=== PATIENT | female | born 1970 | race Caucasian/White ===

== ENCOUNTER → 2017-11-17 10:30 | Outpatient (CLI) | payer OTHER ==
[~2017-11-17 10:30] MED LIST: CIPRO500 MG PO; CLONAZEPAM0.5 MG; COLACE100 MG PO; FLAGYL500MG PO; KETO10TA2 PO; LAMICTAL25 M1 PO; NEURONTIN300 MG PO; NEURONTIN800 MG; PERCOCET 5-3251 EACH PO; RELAFEN PO; SEROQUEL25 MG
== END | disposition home or self-care (01) ==
LOC: ADM 10:30 → EKG 10:30 → EDSTATUS 11-25 10:30 → CIR.AMB 11-25 10:30
DX: K61.2 Anorectal abscess (principal); K62.89 Other specified diseases of anus and rectum; K60.3 Anal fistula; Z01.810 Encounter for preprocedural cardiovascular examination

== ENCOUNTER → 2018-05-12 | Day surgery (SDC) | payer OTHER ==
[~2018-05-12] MED LIST changes: +ALBUTEROL SULFA; +BREO ELLIPTA 21 EACH; +SINGULAIR4 M1; +ULTRACET PO
== END | disposition home or self-care (01) ==
LOC: ADM 05-04 09:15 → CIR.AMB 08:44
DX: K60.3 Anal fistula (principal)

== ENCOUNTER 2018-05-20 15:18 | Emergency (ER) | payer OTHER ==
[~2018-05-20] VITALS: Ht 160 cm; Wt 97.5 kg
== END 2018-05-20 22:21 | disposition home or self-care (01) ==
LOC: ER 15:18
DX: K59.09 Other constipation (principal)

== ENCOUNTER 2019-03-03 17:01 | Inpatient (IN) | payer OTHER ==
[~2019-03-03] VITALS: Ht 160 cm; Wt 97.5 kg
[2019-03-03] MEDS ORDERED: CLONAZEPAM0.5 MG (17:14)
--- NOTE | 2019-03-03 17:15 | NUR ---
PTE INDICA QUE LE SALIO UN INFLAMACION EN EL LADO KIRK DE [place], REFIERE QUE TUVO JESSIE OPERACION EN NOV2017, DE UN ABCESSO, FISTULA Y REMOCION DE SETON. PTE INIDCA EN ENERO EL DR.NICOLAS AUGUSTIN REEVALUO OPERACION Y DIAGNOSITCO QUE NO FUE EXITOSA. PTE INDICA QUE TIENE CHELSEA EN PARA FIJAR NUEVA OPERACION. PTE ALERTA CONSCIENTE Y ORIENTADA X3
--- NOTE | 2019-03-03 17:47 | NUR ---
LOVELACE EVALUA PTE. SE ORIENTA A PTE SOBRE TX MEDICO. PTE REFIERE COMPRENDER. SE REALIZAN MUESTRAS DE LABORATORIO BAJO MEDIDAS ASEPTICAS. SE NOTIFICA CT. PROCEDIMIENTOS LLEVADOS A CABO POR .
--- NOTE | 2019-03-04 00:30 | NUR ---
SE RECIBE PACIENTE ALERTA Y ORIENTADA X3 EN CAMA CON BARANDAS ELEVADAS Y CABEZERA A 30 GRADOS, AREA DE VENOPUNCION PATENTE Y COREY DE EDEMA EN SALINE LOCK. SE ADMINISTRA MEDICAMENTO PARA EL DOLOR INTRAMUSCULAR EN GLUTEO DERECHO PARTE SUPERIOR EXTERNO. PACIENTE TOLERA INTERVECION DEL RN.
--- NOTE | 2019-03-04 07:06 | NUR ---
SE RECIBE PT ALERTA Y ORIENTADA EN TIEMPO LUGAR Y PERSONA. AL MOMENTO EN CAMA CON BARANDAS SUPERIORES ELEVADAS, TIMBRE ACCESIBLE Y SALINE LOCK EN BRAZO RT PATENTE COREY DE EDEMA Y ERITEMA. SE MANTIENE EN ESPERA DE SER EVALUADA POR DRA CAM MELCHOR.
[2019-03-05] MEDS ORDERED: NABUMETONE750 MG PO (08:56)
[2019-03-08] MEDS ORDERED: INTESTINEX680 M1 PO (14:22)
[2019-03-08] MEDS ORDERED: FLAGYL500MG PO (14:22)
[2019-03-08] MEDS ORDERED: CIPRO500 MG PO (14:22)
[2019-03-08] MEDS ORDERED: ULTRACET PO (14:23)
== END 2019-03-08 14:44 | disposition home or self-care (01) | DRG 348 ==
LOC: ER 17:01 → SURG 03-04 11:11
PROVIDERS: ADMIT Surgery
PROC: 3E0F7GC Introduction of Other Therapeutic Substance into Respiratory Tract, Via Natural or Artificial Opening (ICD-10-PCS; 2019-03-04)
PROC: 3E0T3BZ Introduction of Anesthetic Agent into Peripheral Nerves and Plexi, Percutaneous Approach (ICD-10-PCS; 2019-03-06)
PROC: 0D9Q00Z Drainage of Anus with Drainage Device, Open Approach (ICD-10-PCS; principal; 2019-03-06 15:00)
DX: K61.2 Anorectal abscess (principal); N82.3 Fistula of vagina to large intestine; J45.42 Moderate persistent asthma with status asthmaticus; B96.29 Other Escherichia coli [E. coli] as the cause of diseases classified elsewhere; K59.09 Other constipation; I51.7 Cardiomegaly; M79.7 Fibromyalgia; Z88.0 Allergy status to penicillin

== ENCOUNTER 2022-06-10 22:38 | Emergency (ER) | payer OTHER ==
[~2022-06-10] VITALS: Ht 160 cm; Wt 106.1 kg
[~2022-06-10 22:38] MED LIST changes: +INTESTINEX680 M1 PO; +NABUMETONE750 MG PO
[2022-06-10] MEDS ORDERED: AZELASTINE137 MCG/0. (23:13)
[2022-06-10] MEDS ORDERED: CRESTOR10 MG (23:13)
[2022-06-10] MEDS ORDERED: PROAIR RESPICL90 MCG (23:13)
[2022-06-10] MEDS ORDERED: HYDROCHLOROTH12.5 MG (23:14)
== END 2022-06-11 04:32 ==
LOC: ER 22:38
DX: R05.9 Cough, unspecified (principal); R06.02 Shortness of breath; Z88.0 Allergy status to penicillin; Z20.822 Contact with and (suspected) exposure to COVID-19